=== PATIENT | male | born 1955 | race Caucasian/White ===

== ENCOUNTER → 2024-07-28 | Outpatient (CLI) | payer MEDICARE ==
--- NOTE | 2024-07-28 09:07 | XR ---
EXAMINATION TYPE: XR Hip Bilateral Complete DATE OF EXAM: 07/28/2024 COMPARISON: None HISTORY: Bilateral hip pain TECHNIQUE: Two-view bilateral hips FINDINGS: Right femoral head articulates with the acetabulum. Some mild joint space narrowing is pres ent. No acute fracture or dislocation is evident. Left femoral head articulates with the acetabulum. There is mild joint space narrowing. No acute fracture or dislocation evident. IMPRESSION: 1. Mild degenerative changes bilateral hips. 2. No acute osseous abnormalities bilateral hips. [facility], , 07/28/2024 9:05 AM
== END | disposition home or self-care (01) ==
LOC: RADXRMAIN 08:21
PROVIDERS: ATTEND Family Medicine
DX: M16.0 Bilateral primary osteoarthritis of hip (principal)
CPT/HCPCS: 73521

== ENCOUNTER → 2024-11-18 | Outpatient (CLI) | payer MEDICARE ==
[2024-11-18 11:07] LABS: Basophils # (A) 0.02 X 10*3/uL (0.00-0.10); Basophils % (A) 0.2 %; Eosinophils # (A) 0.14 X 10*3/uL (0.04-0.35); Eosinophils % (A) 1.6 %; HCT 43.6 % (39.6-50.0); HGB 14.7 g/dL (13.0-17.0); Lymphocytes # (A) 1.63 X 10*3/uL (0.90-5.00); Lymphocytes % (A) 18.8 %; MCH 30.2 pg (27.0-32.0); MCHC 33.7 g/dL (32.0-37.0); MCV 89.5 FL (80.0-97.0); Mean Platelet Volume 10.4 FL (9.5-12.2); Monocytes # (A) 0.48 X 10*3/uL (0.20-1.00); Monocytes % (A) 5.5 %; NRBC Per 100 WBC 0 X 10*3/uL (0.00-0.01); Neutrophils # (A) 6.37 X 10*3/uL (1.80-7.70); Neutrophils % (A) 73.4 %; Platelet Count 222 X 10*3/uL (140-440); RBC 4.87 X 10*6/uL (4.40-5.60); RDW 12.8 % (11.5-14.5); WBC 8.68 X 10*3/uL (4.50-10.00)
[2024-11-18 16:25] LABS: ALT 22 U/L (10-49); AST 15 U/L (14-35); Albumin 4.5 g/dL (3.8-4.9); Albumin/Globulin Ratio 1.55 Ratio (1.60-3.17); Alkaline Phosphatase 96 U/L (41-126); Blood Urea Nitrogen 13.2 mg/dL (9.0-27.0); Calcium 9.5 mg/dL (8.7-10.3); Carbon Dioxide 25.7 mmol/L (21.6-31.8); Chloride 100 mmol/L (96-109); Chol/HDL Ratio 4.63 Ratio; Globulin 2.9 g/dL (1.6-3.3); Glucose 149 mg/dL (70-110); LDL Cholesterol,Calculated 111.4 mg/dL (0.0-131.0); Potassium 3.9 mmol/L (3.5-5.5); Sodium 138 mmol/L (135-145); T4, Free (Free Thyroxine) 1.08 ng/dL (0.80-1.80); Total Bilirubin 0.7 mg/dL (0.3-1.2); Total Protein 7.4 g/dL (6.2-8.2)
== END | disposition home or self-care (01) ==
LOC: LABWHC1 08:15
PROVIDERS: ATTEND Family Medicine
DX: Z00.00 Encounter for general adult medical examination without abnormal findings (principal); Z12.5 Encounter for screening for malignant neoplasm of prostate; Z79.899 Other long term (current) drug therapy
CPT/HCPCS: 84439; 80061; 80053; 84443; 85025; 36415; G0103

== ENCOUNTER 2025-03-16 07:43 | Day surgery (SDC) | payer MEDICARE ==
[~2025-03-16 07:43] MED LIST: LIDOCAINE 1% (10MG/ML) FOR IV START INTRADERMA PRN
[2025-03-16 08:20] VITALS: TEMP 97.6
[2025-03-16 08:30] LABS: Glucose,Whole Blood 122 mg/dL (70-110)
[2025-03-16] MEDS: IV FLUID CONTINUATION 1,000 ML IV ONE (08:30)
[2025-03-16] MEDS: LACTATED RINGERS 1,000 ML IV SCH (08:30)
[2025-03-16] MEDS ORDERED: PROPOFOL 10 MG/ML 20 ML VIAL IV ONE (08:58)
--- NOTE | 2025-03-16 09:03 | P.GSHP ---
History of Present Illness H&P Date: 03/16/25 Chief Complaint: Colon cancer screening 69-year-old male here for colonoscopy. He has not had 1 previously. No bowel complaints. No family history of colon cancer. Past Medical History Past Medical History: Diabetes Mellitus, Hypertension, Osteoarthritis (OA) History of Any Multi-Drug Resistant Organisms: None Reported Past Surgical History: No Surgical Hx Reported Additional Past Anesthesia/Blood Transfusion Reaction / Comment(s): no family problems w/anesthesia or surgery that he knows, pt. has never had any sedation Smoking Status: Never smoker Medications and Allergies Home Medications Medication Instructions Recorded Confirmed Type Multivitamins, Thera [Multivitamin 1 tab PO DAILY 03/12/25 03/12/25 History (formulary)] Turmeric Root Extract [Turmeric 500 mg PO TID 03/12/25 03/16/25 History Curcumin] hydroCHLOROthiazide [Hydrodiuril] 12.5 mg PO DAILY 03/12/25 03/16/25 History lisinopriL [Zestril] 40 mg PO DAILY 03/12/25 03/16/25 History metFORMIN HCL ER [Glucophage XR] 500 mg PO AC-SUPPER 03/12/25 03/16/25 History Allergies Allergy/AdvReac Type Severity Reaction Status Date / Time No Known Allergies Allergy Verified 03/12/25 14:06 Surgical - Exam Vital Signs Temp Pulse Resp BP Pulse Ox 97.6 F 61 18 167/80 99 03/16/25 08:18 03/16/25 08:18 03/16/25 08:18 03/16/25 08:18 03/16/25 08:18 Physical exam: General: Well-developed, well-nourished HEENT: Normocephalic, sclerae nonicteric Abdomen: Nontender, nondistended Extremities: No edema Neuro: Alert and oriented Results - Labs Abnormal Lab Results - Last 24 Hours (Table) 03/16/25 Range/Units 08:28 POC Glucose (mg/dL) 122 H (70-110) mg/dL Assessment and Plan (1) Colon cancer screening Narrative/Plan: Will proceed with colonoscopy at this time Current Visit: Yes Status: Acute Code(s): Z12.11 - ENCOUNTER FOR SCREENING FOR MALIGNANT NEOPLASM OF COLON SNOMED Code(s): 185990244
--- NOTE | 2025-03-16 09:12 | P.PCN ---
Date of Procedure: 03/16/25 Procedure(s) Performed: PREOPERATIVE DIAGNOSIS: Colon cancer screening POSTOPERATIVE DIAGNOSIS: Diverticulosis PROCEDURE: Colonoscopy ANESTHESIA: MAC SURGEON: Gallo Ernst M.D. SPECIMENS: None ENDOSCOPIC PROCEDURE: The patient was placed on the endoscopy table in the left decubitus position. The Olympus colonoscope was inserted into the anus and passed under direct visualization to the base of the cecum. The appendiceal orifice was visualized. From that point the scope was slowly withdrawn inspe cting all surfaces carefully. There were no neoplastic inflammatory or polypoid lesions throughout the cecum, ascending, transverse, descending, sigmoid and rectum. There was mild left-sided diverticulosis noted. Digital rectal examination was normal. The patient was taken to the recovery room in stable condition per anesthesia guidelines. RECOMMENDATIONS: Resume diet. Repeat colonoscopy 10 years.
[2025-03-16 09:31] VITALS: BP 125/75; PULSE 65; RESP 16
== END 2025-03-16 09:47 | disposition home or self-care (01) ==
LOC: ORWHC2ENDO 07:43
PROVIDERS: ATTEND Surgery
DX: Z12.11 Encounter for screening for malignant neoplasm of colon (principal); K57.30 Diverticulosis of large intestine without perforation or abscess without bleeding; I10 Essential (primary) hypertension; E11.9 Type 2 diabetes mellitus without complications; Z79.84 Long term (current) use of oral hypoglycemic drugs; Z79.899 Other long term (current) drug therapy
CPT/HCPCS: J2704; G0121